=== PATIENT | male | born 1995 | race African-American/Black ===

== ENCOUNTER 2020-03-22 14:03 | Observation (INO) | payer MEDICAID ==
[~2020-03-22] VITALS: Ht 182.9 cm; Wt 84.1 kg
--- NOTE | 2020-03-22 14:10 | NUR ---
EVIDENCE SPECIALIST NOTIFIED FOR PATIENT'S PSYCH SCREENING. PT PLACED IN BLUE PAPER SCRUBS, BELONGINGS TAKEN AND PLACED AT NURSE'S STATION.
[2020-03-22 14:43] LABS: BILIRUBIN NEGATIVE (NEGATIVE); GLUCOSE NEGATIVE (NEGATIVE); KETONE NEGATIVE (NEGATIVE); NITRITE NEGATIVE (NEGATIVE); UROBILINOGEN NORMAL (NORMAL)
[2020-03-22 14:50] LABS: UDS - AMPHET NEGATIVE QUAL (NEGATIVE); UDS - BARB NEGATIVE QUAL (NEGATIVE); UDS - BENZO POSITIVE QUAL (NEGATIVE); UDS - COCAINE NEGATIVE QUAL (NEGATIVE); UDS - OPIATE NEGATIVE QUAL (NEGATIVE); UDS - PCP NEGATIVE QUAL (NEGATIVE); UDS - THC POSITIVE QUAL (NEGATIVE)
[2020-03-22 14:52] LABS: BACTERIA FEW /hpf (NEGATIVE); EPITHELIAL CELLS NSEEN /hpf (0-5); RED CELLS - URINE 0-5 /hpf (0-5)
--- NOTE | 2020-03-22 15:08 | NUR ---
DR. DECKER NOTIFIED AND SITTER ORDERED. SITTER IN LINE OF SIGHT. NOTIFIED CHARGE NURSE AND ATTENDING IN REGARDS TO ASSESSMENT FINDINGS. RESOURCES GIVEN TO PT AND PT REFUSED TO SIGN SAFETY PLAN.
[2020-03-22 15:09] LABS: BASOPHILS 0.3 % (0-2); EOSINOPHILS 0.8 % (0-7); HEMATOCRIT 49.8 % (42.0-54.0); HEMOGLOBIN 16.3 g/dL (13.5-17.5); IMMATURE GRANULOCYTES 0.3 % (0-5); LYMPHOCYTES 16.6 % (15-50); MCH 29.3 pg (26.0-34.0); MCHC 32.7 g/dL (31.0-37.0); MCV 89.6 fL (80.0-100.0); MEAN PLATELET VOLUME 10.5 fL (7.4-10.4); MONOCYTES 7.8 % (2-11); NEUTROPHILS 74.2 % (40-80); PLATELET COUNT 218 10x3/uL (130-400); RBC 5.56 10x6/uL (4.20-6.10); RDW 13.9 % (11.5-14.5)
[2020-03-22 15:20] LABS: CALC OSMOLALITY 278 mosm/kg (275-300); CALCIUM 9.4 mg/dL (8.5-10.1); CHLORIDE - SERUM 104 mmol/L (98-107); CREATININE - SERUM 0.9 mg/dL (0.6-1.3); GLUCOSE 86 mg/dL (74-106); POTASSIUM - SERUM 3.7 mmol/L (3.5-5.1); SODIUM 141 mmol/L (136-145); UREA NITROGEN 11 mg/dL (7-18); eGFR NON AFRICAN AMERICAN > 90 mL/min (90-120)
[2020-03-22 15:38] LABS: ALBUMIN 4.4 g/dL (3.4-5.0); ALKALINE PHOSPHATASE 55 U/L (30-120); ALT (SGPT) 19 U/L (10-68); BILIRUBIN - TOTAL 0.89 mg/dL (0.2-1.3); PROTEIN - SERUM 8.2 g/dL (6.4-8.2)
--- NOTE | 2020-03-22 16:28 | NUR ---
CALLED [facility] FOR SCREENER AT THIS TIME.
--- NOTE | 2020-03-22 16:41 | NUR ---
SPOKE WITH [facility] AT THIS TIME. REPORTS SCREENER WOULD BE ON THEIR WAY WITHIN THE NEXT THIRTY MINUTES.
[2020-03-22 16:56] VITALS: BP 136/72
--- NOTE | 2020-03-22 17:56 | NUR ---
FAXED INFORMATION TO [facility] FOR POSSIBLE PLACEMENT AT THIS TIME.
--- NOTE | 2020-03-22 19:12 | NUR ---
PATIENT AWAKE AND ALERT. SITTER PRESENT. WAITING ON RETURN CALL FROM [facility].
--- NOTE | 2020-03-22 19:18 | NUR ---
[facility] STATES THEY CANNOT ACCEPT PATIENT AT THIS TIME.
--- NOTE | 2020-03-22 19:32 | NUR ---
LAKISHA HUDSON VISITING WITH PATIENT WHO NOW ADMITS HE DID NOT OD IN LAST 24 HOURS BUT HAD THOUGHTS OF TAKING OD. [facility] NOTIFIED OF NEW INFORMTION AND ADDITIONAL PHYSICIAN DOCUMENTATION FAXED FOR THEM TO REVIEW. SPOKE WITH JAKE
--- NOTE | 2020-03-22 19:53 | NUR ---
PATIENT NOW STATING THAT HE TOOK 15 XANAX LAST NIGHT AND 5 THIS AM. UNSURE OF MG
--- NOTE | 2020-03-22 23:00 | NUR ---
PT ARRIVED TO FLOOR FROM ER VIA WHEELCHAIR. PT SEEMED CALM UPON ARRIVAL THEN BECAME TEARFUL AND EMOTIONALLY DISTRAUGHT. SCOTT CERNA AND SCOTT HICKS TALKED TO AND TRIED TO SOOTH PT. PT CALMED DOWN BUT THEN BECAME UPSET AGAIN AFTER TALKING WITH HIS CHILD'S MOTHER ON THE PHONE. PT UPSET CRYING AND SHOUTING, WALKED DOWN CAREY STATING HE IS GOING TO LEAVE. CALLED SECURITY. SCOTT CERNA AND SECURITY SUCCEEDED IN CALMING PT DOWN AND GOT HIM BACK TO ROOM.
[2020-03-23] VITALS (7 sets, daily range): BP systolic 118–165; BP diastolic 58–96; Ht 182.9 cm; Wt 84.1 kg
--- NOTE | 2020-03-23 00:05 | NUR ---
PATIENT TEARFUL, TOOK HEART MONITOR OFF AND WALKED TOWARD THE DOOR IF TO LEAVE SAYING, Y'ALL CAN'T KEEP ME HERE. SECURITY CALLED, TALKED PATIENT DOWN AND GOT HIM BACK INTO HIS ROOM. HE HANDED OVER HIS PHONE AND STARTED BEING COOPERATIVE. CALLED FOR MED TO HELP PATIENT CALM DOWN. WILL CONTINUE TO SIT WITH PATIENT ONE ON ONE.
--- NOTE | 2020-03-23 02:00 | NUR ---
PATIENT IS RESTING IN BED WITH EYES CLOSED. NO S/S OF ACUTE DISTRESS. NO C/O AT THIS TIME. PATIENT IS ON SUICIDE WATCH, AND HAS A ONE-ON-ONE SITTER WITH HIM. PATIENT HAS A IV IN LEFT FOREARM, SALINE LOC. IV IS PATENT WITHOUT REDNESS, SWELLING, OR TENDERNESS. CALL LIGHT WITHIN REACH. WILL CONTINUE TO MONITOR.
--- NOTE | 2020-03-23 07:36 | NUR ---
PT RESTING IN BED WITH EYES CLOSED CURRENTLY RESTING COMFORTABLY WITH NO S/S OF DISTRESS. SITTER PRESENT. WILL CONT TO MONITOR.
--- NOTE | 2020-03-23 15:36 | NUR ---
PT REFUSED TO GO TO [facility] STATED HE FEELS MUCH BETTER, SPOKE TO DR JHAVERI, ORDERED TO HAVE PSYCH EVAL BUT NO ONE IS AVAILABLE FOR PSYCH EVAL UNTIL TUESDAY. WAITING TO CONFIRM WITH DR JHAVERI ON ORDERS AND PLAN OF CARE
--- NOTE | 2020-03-23 15:55 | NUR ---
PT IS REFUSING TO GO TO [facility] STATES HE IS FINE AND KNOWS HE MADE A MISTAKE, WILL GET HELP ON HIS OWN IF WE JUST LET HIM LEAVE AND GO TO HIS GRANDPARENT'S HOME, WANTS TO BE RE-EVALUATED BY DR. STORY IN PSYCH CONSULT, BUT CANT BE SEEN UNTIL TOMORROW. STATES THAT HE CAN STAY TONIGHT AND LET 'S TEAM EVALUATE HIM TOMORROW.
--- NOTE | 2020-03-23 20:00 | NUR ---
PT C/O LEFT FOREARM IV TENDER, SAYS HE WANTS IT OUT. PT HAS NO IV MEDS. REMOVED IV CATHETER INTACT. PT ASKED FOR HIS PHONE TO [employer] WITH HIS DAUGHTER. ALLOWED PT TO USE HIS PHONE TO DO THIS UNDER SUPERVISION. PT VERY EMOTIONAL DURING AND AFTER e[employer] CALL. RETURNED PHONE TO NURSES DESK.
[2020-03-24] VITALS: BP 141/79
[2020-03-24 04:00] VITALS: BP 129/62
[2020-03-24 05:49] LABS: BASOPHILS 0.2 % (0-2); EOSINOPHILS 0.9 % (0-7); HEMATOCRIT 49.6 % (42.0-54.0); IMMATURE GRANULOCYTES 0.1 % (0-5); LYMPHOCYTES 25.6 % (15-50); MCH 28.7 pg (26.0-34.0); MCHC 32.3 g/dL (31.0-37.0); MEAN PLATELET VOLUME 11.1 fL (7.4-10.4); MONOCYTES 8.5 % (2-11); NEUTROPHILS 64.7 % (40-80); PLATELET COUNT 256 10x3/uL (130-400); RBC 5.57 10x6/uL (4.20-6.10); RDW 13.7 % (11.5-14.5)
[2020-03-24 06:06] LABS: ALKALINE PHOSPHATASE 54 U/L (30-120); ALT (SGPT) 15 U/L (10-68); BILIRUBIN - TOTAL 0.67 mg/dL (0.2-1.3); CALC OSMOLALITY 283 mosm/kg (275-300); CALCIUM 9.1 mg/dL (8.5-10.1); CHLORIDE - SERUM 104 mmol/L (98-107); CREATININE - SERUM 0.9 mg/dL (0.6-1.3); GLUCOSE 82 mg/dL (74-106); PROTEIN - SERUM 7.3 g/dL (6.4-8.2); SODIUM 143 mmol/L (136-145); UREA NITROGEN 12 mg/dL (7-18); eGFR NON AFRICAN AMERICAN > 90 mL/min (90-120)
--- NOTE | 2020-03-24 07:46 | NUR ---
PT SITTING UP IN BED STATED HE IS READY TO GO HOME AND SEE HIS BABY, SPOKE TO PT FOR A BIT AND TOLD HIM TO HANG IN THERE AND THAT THREATENING ONES LIFE IS VERY SERIOUS AND WE WANT TO MAKE SURE HE IS SAFE, PT VERBALIZED UNDERSTANDING, PENDING PSYCH CONSULT, CONTINUE WITH PLAN OF CARE
[2020-03-24 08:02] VITALS: BP 144/66
--- NOTE | 2020-03-24 10:18 | NUR ---
PT IN ROOM CRYING, WANTS SOMETHING FOR ANXIETY, EXPLAINED I AM UNABLE TO ADMINISTER ANY MEDS WE DO NOT HAVE ANY ORDERS FROM THE DOCTORS TO DO SO. PT BECAME MORE UPSET AND IS CRYING. UNABLE TO CONSOLE PT. CONTINUE WITH PLAN OF CARE
--- NOTE | 2020-03-24 10:24 | NUR ---
CALLED [facility] AND SPOKE TO CHRISTOPHER, WAS TOLD THAT THEY ARE UNCERTAIN WHEN DR FLETCHER WOULD MAKE IT IN TODAY, CONTINUE WITH PLAN OF CARE
[2020-03-24 11:45] VITALS: BP 184/76
--- NOTE | 2020-03-24 13:53 | NUR ---
SPOKE TO PT IN REGARDS TO BEING TRANSFERRED TO [facility], PT REFUSED STATING HE WANTS TO SEE A DOCTOR AND BE RELEASED TO GO HOME, EXPLAINED I AM AWARE OF HIS WANTS BUT HIS ACTIONS HAVE RESULTED IN HIM BEING ADMITTED FOR [facility]. PT STATES HE WANTS TO SPEAK WITH PSYCH DOCTOR FIRST BEFORE AGREEING TO ANYTHING. CONTINUE WITH PLAN OF CARE
--- NOTE | 2020-03-24 16:16 | NUR ---
PT WAS ORDERED KLONIPIN TID, WHEN BRINGING PT SCHEDULED MED PT REFUSED STATED "THAT IS WHAT GOT ME HERE IN THE FIRST PLACE AND I WANT OUT" DID NOT ADMINISTER MEDS, CONTINUE WITH PLAN OF CARE
[2020-03-24 16:49] VITALS: BP 156/69
--- NOTE | 2020-03-24 18:08 | NUR ---
PT DC TO [facility], SPOKE TO AZAEL AND GAVE REPORT, PT PICKED UP BY AMBULANCE
--- NOTE | 2020-03-25 11:32 | PN ---
PATIENT:RICCI CRUZ MEDICAL RECORD: [id number] LOCATION:[facility] ADMISSION DATE: 03/22/20 PROGRESS NOTE DATE OF SERVICE: 03/24/2020 SUBJECTIVE: The patient's case was discussed with staff. He has no new complaint. OBJECTIVE: The patient denies thoughts of harming himself. He says he wants to go home. He endorses numerous neurovegetative depressive symptoms. Earlier today, he was sitting on the bed, crying. This is documented by nursing staff. ASSESSMENT: Major depression. PLAN: This patient was in the Emergency Room reporting that he had taken "20 bars of Xanax" to kill himself. He says that he has tried to kill himself multiple times by hanging and jumping off a roof. He is quoted this in the Emergency Room as saying he wants to . He was uncooperative in the custodial. At this point, I am in complete agreement with the nurse practitioner who by the way discussed this case with me and he is in need of inpatient psychiatric care. I feel strongly enough about it, that he should be committed if he refuses to go on a voluntary basis. TRANSINT:[id number] Voice Confirmation ID: [id number] DOCUMENT ID: [id number] NELSON SAMSON MD at 1132 CC: [id number] DICTATION DATE: 03/24/201708 [employer]FT CYLIND[employer] MECHANIC: 03/24/202126 DIS IN 03/24/20 [id number] [place] [address]
== END 2020-03-24 18:09 | disposition short-term general hospital (02) ==
LOC: D.ER 14:03 → OBSVTIME 20:06 → D.MS 20:06
PROVIDERS: Emergency Medicine; ADMIT Internal Medicine Nephrology; ATTEND Internal Medicine Nephrology
DX: T65.92XA Toxic effect of unspecified substance, intentional self-harm, initial encounter (principal); Y92.9 Unspecified place or not applicable; F12.90 Cannabis use, unspecified, uncomplicated; F17.203 Nicotine dependence unspecified, with withdrawal; N39.0 Urinary tract infection, site not specified; F33.2 Major depressive disorder, recurrent severe without psychotic features